=== PATIENT | female | born 1970 | race Caucasian/White ===

== ENCOUNTER 2024-10-14 08:48 | Day surgery (SDC) | payer OTHER, SELFPAY ==
[2024-10-14] VITALS (15 sets, daily range): BP systolic 156–182; BP diastolic 82–108; BMI 25.4
[2024-10-14] MEDS: NSS 183 ML IV (09:52)
--- NOTE | 2024-10-14 19:39 | ITS.CL.PN ---
[employer] - Procedure Note
Procedure
Procedure Note:
CARDIAC CATHETERIZATION REPORT
Date of Procedure: 10/14/2024
Referring: Dr. Clinton Raymond MD
Indication: atypical angina, prior abnormal coronary CTA
PROCEDURE(S)
1. left heart catheterization
2. coronary angiography
ACCESS: 6F right radial artery (closure: radial band)
CATHETERS
1. 6F AR2 (consider groin access for any future caths given high anterior takeoff and difficulty engaging catheters from the wrist)
2. 6F JL3.5, AL1 (unable to selectively cannulate the LAD with the JL3.5)
MODERATE SEDATION: 25 minutes of moderate sedation was utilized. An independent medical front desk specialist was present to assist with and help manage the patient's level of consciousness and physiologic status.
HEMODYNAMIC DATA
LV 179/4 (EDP 8) mmHg
AO 167/80 (mean 121) mmHg
CORONARY ANGIOGRAPHY
Dominance: Right
LM: Cloacal
LAD: Large vessel giving rise to a moderate caliber D1. There is mild diffuse disease.
LCx: Large vessel giving rise to a small OM1, large branching OM2, and moderate caliber LPL branch. There is mild diffuse disease.
RCA: Moderate caliber vessel giving rise to a small RPDA and several small RPL branches. There is a 90% stenosis in the mid RCA and otherwise trivial luminal irregularities. There is GUILLAUME-3 flow distally.
RADIATION: dose 555.37 mGy; DAP 38.1584 Gy*cm2; fluoroscopy time 15.9 min
CONCLUSIONS
1. Single-vessel coronary artery disease as described in a right dominant system.
2. Normal LV filling pressure and no aortic stenosis.
RECOMMENDATIONS
1. In discussion with the patient, she described nonanginal symptoms (reproducible pain on breast palpitation, no exertional component). Given lack of convincing anginal symptoms, recommend medical management of her single-vessel coronary artery
disease. Should she develop angina in the future, percutaneous coronary intervention of the RCA would be straightforward.
2. Aggressive secondary prevention of coronary artery disease.
Copy to: Dr. Clinton Raymond MD (county attorney); Dr. Laya Pascual MD (PCP)
Signed: Aneesh Carpenter MD, PhD
== END 2024-10-14 15:40 | disposition home or self-care (01) ==
LOC: CATH 08:48
PROVIDERS: ATTENDING PHYSICIAN Student in an Organized Health Care Education/Training Program; FAMILY PHYSICIAN Internal Medicine; OTHER PHYSICIAN Internal Medicine Cardiovascular Disease
DX: I25.119 Atherosclerotic heart disease of native coronary artery with unspecified angina pectoris (principal); I10 Essential (primary) hypertension; E78.5 Hyperlipidemia, unspecified; R73.03 Prediabetes; Z79.82 Long term (current) use of aspirin; Z79.85 Long-term (current) use of injectable non-insulin antidiabetic drugs
CPT/HCPCS: 99152; 99153; C1894; 93458; Q9967